=== PATIENT | male | born 1975 | race Caucasian/White ===

== ENCOUNTER 2019-05-25 15:41 | Inpatient (IN) | payer MEDICARE, MEDICAID ==
[~2019-05-25] VITALS: Ht 175.3 cm; Wt 93.0 kg
[~2019-05-25 15:41] MED LIST: GEOD1CAP PO; GEODON PO; LAMI25TA PO; LAMICTAL PO; RISP2TAB32 PO; SERO1TAB PO
[2019-05-25] MEDS ORDERED: CLON1TAB8 PO (15:56)
[2019-05-25] MEDS ORDERED: HALO10TA20 PO (15:56)
[2019-05-25] MEDS ORDERED: MAALOX 30 ML SUSP *UDC PO PRN (17:15)
[2019-05-25] MEDS ORDERED: ACETAMINOPHEN TAB 650MG DOSE (2X325MG) PO PRN (17:15)
[2019-05-25] MEDS ORDERED: MOM 30ML SUSPENSION UDC PO PRN (17:15)
[2019-05-25 18:01] VITALS: BP 113/65
[2019-05-25] MEDS: clonazePAM 1 MG TAB PO SCH (20:00)
[2019-05-25] MEDS: HALOPERIDOL 10 MG TAB PO SCH (20:00)
[2019-05-26 06:24] VITALS: BP 131/64
[2019-05-26] MEDS: clonazePAM 1 MG TAB PO SCH ×2 (08:22→21:00)
[2019-05-26] MEDS: HALOPERIDOL 10 MG TAB PO SCH ×2 (08:22→21:00)
--- NOTE | 2019-05-26 13:48 | HPEPDOC ---
General Date of Admission May 25, 2019 at 17:13 Date of Service: May 26, 2019 Chief Complaint The patient is a 44-year-old male admitted with a reason for visit of Schizoaffective Disorder. Source: Patient, Old records History of Present Illness 44 year old male with PMH of schizoaffective and bipolar disorder was admitted to [facility] for psychosis and i am seeing the patient here for medical history and physical. Patient tells me he has been having high WBCs for a while . He had some bad teeth so his PMD treated him with antibiotics this month and then rechecked his WBC which remained elevated so has referred him to a underwater photographer. He also complains that his groins are red and raw for which he was using fungal cream at home. He also complains of diarrhea one or two times a day which has worsened after the antibiotics. denied any abdominal pain. Home Medications Scheduled Clonazepam (Clonazepam) 1 Mg Tablet, 1 MG PO BID, (Reported) Haloperidol (Haloperidol) 10 Mg Tablet, 10 MG PO BID, (Reported) Allergies Coded Allergies: No Known Allergies (Unverified , 11/23/14) Past Medical History Medical History schizoaffective disorder, bipolar 1 disorder Leucocytosis Surgical History hernia surgery at age of 5 years cyst removal from back Family History Significant Family History: Cancer (mother breast cancer), Lung disease (father ) Social History * Smoker: current smoker Alcohol: sober (used to drink heavily before) Drugs: marijuana A-FIB/CHADSVASC A-FIB History Current/History of A-Fib/PAF?: No Review of Systems Constitutional: Denies: Chills, Fever, Night Sweats Eyes: Denies: Pain, Vision change ENT: Denies: Head Aches, Ear Pain, Dysphagia Skin: Reports: Rash (at both groins and right base of thumb), Breakdown (at the right groin); Denies: Lesions Pulmonary: Denies: Dyspnea, Cough Cardiovascular: Denies: Chest Pain, Palpitations, Orthopnea, Lt Headedness Gastrointestinal: Reports: Diarrhea; Denies: Nausea, Vomiting, Abdominal Pain Genitourinary: Denies: Dysuria, Frequency, Incontinence, Retention Hematologic: Denies: Bruising, Bleeding Excessively Musculoskeletal: Denies: Neck Pain, Back Pain, Joint Pain, Muscle Pain, Spasms Physical Examination General Exam: Positive: Alert, Cooperative, No Acute Distress Eye Exam: Positive: PERRLA, Conjunctiva & lids normal, EOMI; Negative: Sclera icteric ENT Exam: Positive: Atraumatic, Mucous membr. moist/pink, Pharynx Normal Neck Exam: Positive: Supple; Negative: JVD, thyromegaly Chest Exam: Positive: Clear to auscultation, Normal air movement Heart Exam: Positive: Rate Normal, Regular Rhythm, Normal S1, Normal S2; Negative: Murmurs, Rubs Abdomen Exam: Positive: Normal bowel sounds, Soft; Negative: Tenderness, Hepatospenomegaly Extremity Exam: Positive: Normal pulses; Negative: Clubbing, Cyanosis, Edema Skin Exam: Positive: Rash (Bilateral groin fungal infection more on the right) Neuro Exam: Positive: Normal Gait, Normal Speech, Strength at 5/5 X4 ext, Cranial Nerves 3-12 NL, Reflexes 2+ Vital Signs Vital Signs Date Time Temp Pulse Resp B/P (MAP) Pulse Ox O2 Delivery O2 Flow Rate FiO2 05/26/19 06:24 97.6 87 14 131/64 (86) 05/25/19 18:01 98 Assessment/Plan 44 year old male with PMH of schizoaffective and bipolar disorder was admitted to [facility] for psychosis and i am seeing the patient here for medical history and physical. Leucocytosis as per patient report will check WBC with differentia and peripheral smear. and basic metabolic panel Intertriginous candidiasis will give nystatin powder Rest of the management as per psychiatry Plan / VTE VTE Prophylaxis Ordered?: No (freely ambulatory) NATHALIA CARRENO MD May 26, 2019 12:06
[2019-05-26 14:02] LABS: BASO # 0.1 10^3/uL (0.0-0.2); BASO % 0.7 % (0.0-1.0); EOS # 0.4 10^3/uL (0.0-0.5); EOS % 4.5 % (0.0-3.0); HEMATOCRIT 42.7 % (42.0-52.0); LYMPH # 2.9 10^3/uL (1.5-5.0); MEAN CORPUSCULAR HGB CONC 32.8 g/dl (32.0-36.5); MEAN CORPUSCULAR VOLUME 91.6 fl (80.0-96.0); MONO # 0.6 10^3/uL (0.0-0.8); MONO % 6.6 % (0.0-5.0); NEUTROPHILS # 5.5 10^3/uL (1.5-8.5); NEUTROPHILS % 57.5 % (36.0-66.0); PLATELET COUNT, AUTOMATED 215 10^3/uL (150-450); RED BLOOD COUNT 4.66 10^6/uL (4.30-6.10); WHITE BLOOD COUNT 9.6 10^3/uL (4.0-10.0)
[2019-05-26 14:19] LABS: BLOOD UREA NITROGEN 17 MG/DL (7-18); CALCIUM LEVEL 9.2 MG/DL (8.5-10.1); CARBON DIOXIDE LEVEL 28 MEQ/L (21-32); CHLORIDE LEVEL 109 MEQ/L (98-107); CREATININE FOR GFR 0.78 MG/DL (0.70-1.30); GLOMERULAR FILTRATION RATE > 60.0 (>60); GLUCOSE, FASTING 108 MG/DL (70-100); POTASSIUM SERUM 4.3 MEQ/L (3.5-5.1); SODIUM LEVEL 142 MEQ/L (136-145)
[2019-05-26] MEDS: NYSTATIN 100,000 UNITS/GM TOPICAL PWD 15 GM TOP SCH ×2 (14:58→20:59)
[2019-05-26] MEDS: NICOTINE 14 MG/24 HR TRANSDERMAL TD SCH (15:01)
[2019-05-26 16:20] VITALS: BP 110/56
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
[2019-05-26] MEDS: traZODone 50 MG TAB PO PRN (21:00)
[2019-05-27 06:56] VITALS: BP 118/56
[2019-05-27] MEDS: NICOTINE 14 MG/24 HR TRANSDERMAL TD SCH ×2 (08:05→15:23)
[2019-05-27] MEDS: HALOPERIDOL 10 MG TAB PO SCH (08:06)
[2019-05-27] MEDS: clonazePAM 1 MG TAB PO SCH ×2 (08:06→20:18)
[2019-05-27] MEDS: NYSTATIN 100,000 UNITS/GM TOPICAL PWD 15 GM TOP SCH ×2 (08:06→21:00)
--- NOTE | 2019-05-27 10:27 | MHIPNPDOC ---
[facility] Progress Note Progress Note DATE OF SERVICE: 05/27/19 HISTORY: Per Dr. Byers admit note "This is a 44-year-old male who was referred by [facility] because they have no beds available. His main complaint is "I can't get these visions to stop." He says that he has these constant hallucinations where he sees crosses, some of them are upside down. He sees aliens, human beings and other things. As we were talking, he closed his eyes and he said that he could see these things. He says that it is always when he closes his eyes or when he is in the dark. He says that he has been having these for many years now, "ever since I found out that it was the end of days." The patient states that occasionally he may also have some auditory hallucinations but they are very rare. If he does hear it, they might say things like "come out of your shell and keep searching for the truth." He says of course that the hallucinations particularly interfere with his sleep. He stated in the emergency room that he was not suicidal, but sometimes he would "wish I was ." In [place]'s chart, he apparently told them that he would overdose if these hallucinations continue to happen, but the patient states that he did not remember saying that. He indicates that he was diagnosed with schizoaffective disorder and he [facility] in [place]. He is currently on Klonopin, Haldol, but he states that he wants to get placed on what he refers to as a "miracle drug" of Clozaril. He tells me that his main problem with the Clozaril is that he has had problems with his white count and as a result of that his clinic doctor has not wanted to try him on the Clozaril. The patient currently is on Haldol 10 mg twice a day and Klonopin 1 mg twice a day. He says that he was told that he needs to get off of the Klonopin, but he is too anxious, he says. He knows that he cannot get off of it right now. He says that he needs to get off of the Klonopin before they can treat him with Clozaril also. He tells me that he did not sleep last night but he did not take anything for sleep. I told him that we do have trazodone ordered on an as needed basis and he says that he will take it today because he says that in the past he has taken it and it has helped him. The patient uses cannabis on a daily basis but had stopped using it about three days ago. The patient says that in the past they thought that he was bipolar but then they changed it to schizoaffective disorder. He has been on multiple medications before, such as Seroquel, Risperdal and Abilify. He does not recall ever having been on Zyprexa before." VITAL SIGNS: See below. NEW TEST RESULTS: See below. CURRENT MEDICATIONS: See below. MENTAL STATUS EXAMINATION: He is alert and oriented times three. Eye contact is fair. Psychomotor activity is increased due to anxiety. He is paranoid that the conspiracy theories that he's ready online with actually happening with "the end of days". He is very concrete in his thinking with worrisome paranoid thought that the "end of days will happen" based on what he's read online (a lot of science fiction). He states that his mood is better. Affect is constricted, anxious but appropriate to mood. He is having visual hallucinations related to conspiracy theories that the pt is scared will actually happen and stop when he opens his eyes. He is denying suicidal or homicidal ideation. Concentration is fair. Memory is intact. Insight and judgment poor. DIAGNOSES: Psychosis, unspecified Generalized Anxiety Disorder Cannabis use disorder, severe. ASSESSMENT::Pt seen and states that his mood is better. States he slept well last night. Feels he is tolerating his medications and they're beneficial for his mood. He is concerned that they are not treating his hallucinations. He is attending groups and finding them helpful. He denies SI/HI, delusions. Pt feels safe here. "Category 4 & 5" hallucinations of green faces at night, demons, angels which are distracting to go to sleep. He states that category 4 is when his eyes are closed and category 5 is when his eyes are open. States he read this information online along with also reading about science fiction topics and conspiracy theories that he believes may happen and scared to with visual hallucinations based on what he's read on line and only when eyes closed, feels really anxious and tense at the same time. Has been concerned that he has been hearing a "voice of god/technology" sometimes although denies AH, but states that it has been weeks since his last one. He states that he reads a lot online from sites which claim to be alien communications, and those which claim that the apocalypse is coming soon which he believes and is very scared will happen. Advised to stop reading science fiction and about conspiracy theories talking about the end of the word to improve over all anxiety which pt agreed to. MANAGEMENT PLAN: continue plan. increase haldol for paranoia and anxiety trazodone 50mg qhs prn insomnia continue klonopin 1mg bid increase haldol 15mg bid TIME SPENT: 30 minutes. Vital Signs Vital Signs Date Time Temp Pulse Resp B/P (MAP) Pulse Ox O2 Delivery O2 Flow Rate FiO2 05/27/19 06:56 98.0 46 16 118/56 (76) 05/25/19 18:01 98 Laboratory Data [facility] Labs Laboratory Tests 2 05/26/19 13:47: Immature Granulocyte % (Auto) 0.7, Neutrophils (%) (Auto) 57.5, Lymphocytes (%) (Auto) 30.0, Monocytes (%) (Auto) 6.6H, Eosinophils (%) (Auto) 4.5H, Basophils (%) (Auto) 0.7, Neutrophils # (Auto) 5.5, Lymphocytes # (Auto) 2.9, Monocytes # (Auto) 0.6, Eosinophils # (Auto) 0.4, Basophils # (Auto) 0.1, Nucleated Red Blood Cells % (auto) 0.0, Differential Slide Review Report, Peripheral Blood Smear Path Consult PERIPHERAL SMEAR, Anion Gap 5L, Glomerular Filtration Rate > 60.0, Calcium Level 9.2 CBC/BMP Laboratory Tests 05/26/19 13:47 Current Medications Current Medications Medications (Trade) Dose Ordered Sig/Vivek Route PRN Reason Start Time Stop Time Status Last Admin Dose Admin Acetaminophen (Tylenol Tab) 650 mg Q6HP PRN PO HEADACHE or DISCOMFORT 05/25/19 17:15 Al Hydrox/Mg Hydrox/Simethicone (Mylanta) 30 ml Q4HP PRN PO HEARTBURN/INDIGESTION 05/25/19 17:15 Clonazepam (KlonoPIN) 1 mg BID PO 05/25/19 21:00 05/27/19 08:06 Haloperidol (Haldol) 10 mg BID PO 05/25/19 21:00 05/27/19 08:06 Home Med (Med Rec Complete!) ASDIRECTED XX 05/25/19 17:45 05/25/19 17:38 DC Magnesium Hydroxide (Milk Of Magnesia) 30 ml DAILYPRN PRN PO CONSTIPATION 05/25/19 17:15 Nicotine (Nicoderm Cq 14mg) 1 patch DAILY TD 05/26/19 09:00 05/26/19 15:01 Nystatin (Mycostatin Powder, Nystop) both groins BID TOP 05/26/19 09:00 05/27/19 08:06 Trazodone HCl (Desyrel) 50 mg QHSP PRN PO INSOMNIA 05/25/19 17:15 05/26/19 21:00 Allergies Coded Allergies: No Known Allergies (Unverified , 11/23/14) RUTHIE LERAM DO May 27, 2019 10:27 am
[2019-05-27 16:00] VITALS: BP 108/58
[2019-05-27] MEDS: HALOPERIDOL 5 MG TAB PO SCH (20:19)
[2019-05-27] MEDS: traZODone 50 MG TAB PO PRN (20:19)
[2019-05-27] MEDS ORDERED: diphenhydrAMINE 50 MG CAP PO ONE (23:45)
[2019-05-28 06:36] VITALS: BP 124/88
[2019-05-28] MEDS: NICOTINE 14 MG/24 HR TRANSDERMAL TD SCH (08:36)
[2019-05-28] MEDS: clonazePAM 1 MG TAB PO SCH ×2 (08:37→20:02)
[2019-05-28] MEDS: NYSTATIN 100,000 UNITS/GM TOPICAL PWD 15 GM TOP SCH ×2 (08:37→20:02)
[2019-05-28] MEDS: HALOPERIDOL 5 MG TAB PO SCH ×2 (08:37→20:02)
--- NOTE | 2019-05-28 09:55 | MHIPNPDOC ---
[facility] Progress Note Progress Note DATE OF SERVICE: 05/28/19 HISTORY: Per Dr. Byers admit note "This is a 44-year-old male who was referred by [facility] because they have no beds available. His main complaint is "I can't get these visions to stop." He says that he has these constant hallucinations where he sees crosses, some of them are upside down. He sees aliens, human beings and other things. As we were talking, he closed his eyes and he said that he could see these things. He says that it is always when he closes his eyes or when he is in the dark. He says that he has been having these for many years now, "ever since I found out that it was the end of days." The patient states that occasionally he may also have some auditory hallucinations but they are very rare. If he does hear it, they might say things like "come out of your shell and keep searching for the truth." He says of course that the hallucinations particularly interfere with his sleep. He stated in the emergency room that he was not suicidal, but sometimes he would "wish I was ." In [place]'s chart, he apparently told them that he would overdose if these hallucinations continue to happen, but the patient states that he did not remember saying that. He indicates that he was diagnosed with schizoaffective disorder and he [facility] in [place]. He is currently on Klonopin, Haldol, but he states that he wants to get placed on what he refers to as a "miracle drug" of Clozaril. He tells me that his main problem with the Clozaril is that he has had problems with his white count and as a result of t hat his clinic doctor has not wanted to try him on the Clozaril. The patient currently is on Haldol 10 mg twice a day and Klonopin 1 mg twice a day. He says that he was told that he needs to get off of the Klonopin, but he is too anxious, he says. He knows that he cannot get off of it right now. He says that he needs to get off of the Klonopin before they can treat him with Clozaril also. He tells me that he did not sleep last night but he did not take anything for sleep. I told him that we do have trazodone ordered on an as needed basis and he says that he will take it today because he says that in the past he has taken it and it has helped him. The patient uses cannabis on a daily basis but had stopped using it about three days ago. The patient says that in the past they thought that he was bipolar but then they changed it to schizoaffective disorder. He has been on multiple medications before, such as Seroquel, Risperdal and Abilify. He does not recall ever having been on Zyprexa before." VITAL SIGNS: See below. NEW TEST RESULTS: See below. CURRENT MEDICATIONS: See below. MENTAL STATUS EXAMINATION: He is alert and oriented times three. Eye contact is fair. Psychomotor activity is increased due to anxiety. He is paranoid that the conspiracy theories that he's ready online with actually happening with "the end of days". He is very concrete in his thinking with worrisome paranoid thought that the "end of days will happen" based on what he's read online (a lot of science fiction). He states that his mood is better. Affect is constricted, anxious but appropriate to mood. He is having visual hallucinations related to conspiracy theories that the pt is scared will actually happen and stop when he opens his eyes. He is denying suicidal or homicidal ideation. Concentration is fair. Memory is intact. Insight and judgment poor. DIAGNOSES: Psychosis, unspecified Generalized Anxiety Disorder Cannabis use disorder, severe. ASSESSMENT::Pt seen and states that his mood is better but states he didn't sleep very well last night, only a few hours. Agreeable to increase in trazodone to improve sleep. States "racing thoughts and VH when eyes closed". Can't states exactly what he was thinking or hallucinating about. States he feels he'd do better at home b/c "it's too stressful here" but can't exactly state what is making him feel stressed here. Continues to have anxiety relating to the fears of the end of days that he has read online previous and seems to perseverate on it. States he's taken depakote in the past when he was depressed and is agreeable to taking it night for aid in mood and anxiety. Feels he is tolerating his medications (increase in haldol) and they're beneficial for his mood. He is concerned that they are not treating his hallucinations. He is at tending groups and finding them helpful. He denies SI/HI, delusions. Pt feels safe here. Per yesterday's note ""Category 4 & 5" hallucinations of green faces at night, demons, angels which are distracting to go to sleep. He states that category 4 is when his eyes are closed and category 5 is when his eyes are open. States he read this information online along with also reading about science fiction topics and conspiracy theories that he believes may happen and scared to with visual hallucinations based on what he's read on line and only when eyes closed, feels really anxious and tense at the same time. Has been concerned that he has been hearing a "voice of god/technology" sometimes although denies AH, but states that it has been weeks since his last one. He states that he reads a lot online from sites which claim to be alien communications, and those which claim that the apocalypse is coming soon which he believes and is very scared will happen. Advised to stop reading science fiction and about conspiracy theories talking about the end of the word to improve over all anxiety which pt agreed to." MANAGEMENT PLAN: continue plan. Increase trazodone prn insomnia. Start depakote 250mg qhs for mood and anxiety. trazodone 100mg qhs prn insomnia continue klonopin 1mg bid increase haldol 15mg bid depakote 250mg qhs TIME SPENT: 30 minutes. Vital Signs Vital Signs Date Time Temp Pulse Resp B/P (MAP) Pulse Ox O2 Delivery O2 Flow Rate FiO2 05/28/19 06:36 98.3 92 12 124/88 (100) Room Air 05/25/19 18:01 98 Current Medications Current Medications Medications (Trade) Dose Ordered Sig/Vivek Route PRN Reason Start Time Stop Time Status Last Admin Dose Admin Acetaminophen (Tylenol Tab) 650 mg Q6HP PRN PO HEADACHE or DISCOMFORT 05/25/19 17:15 Al Hydrox/Mg Hydrox/Simethicone (Mylanta) 30 ml Q4HP PRN PO HEARTBURN/INDIGESTION 05/25/19 17:15 Clonazepam (KlonoPIN) 1 mg BID PO 05/25/19 21:00 05/28/19 08:37 Haloperidol (Haldol) 10 mg BID PO 05/25/19 21:00 05/27/19 10:27 DC 05/27/19 08:06 Haloperidol (Haldol) 15 mg BID PO 05/27/19 21:00 05/28/19 08:37 Home Med (Med Rec Complete!) ASDIRECTED XX 05/25/19 17:45 05/25/19 17:38 DC Magnesium Hydroxide (Milk Of Magnesia) 30 ml DAILYPRN PRN PO CONSTIPATION 05/25/19 17:15 Nicotine (Nicoderm Cq 14mg) 1 patch DAILY TD 05/26/19 09:00 05/28/19 08:36 Nystatin (Mycostatin Powder, Nystop) both groins BID TOP 05/26/19 09:00 05/28/19 08:37 Trazodone HCl (Desyrel) 50 mg QHSP PRN PO INSOMNIA 05/25/19 17:15 05/27/19 20:19 Allergies Coded Allergies: No Known Allergies (Unverified , 11/23/14) RUTHIE LERMA DO May 28, 2019 9:55 am
[2019-05-28 11:24] LABS: ALBUMIN 3.7 GM/DL (3.2-5.2); ALT/SGPT 21 U/L (12-78); BILIRUBIN,TOTAL 0.3 MG/DL (0.2-1.0); BLOOD UREA NITROGEN 14 MG/DL (7-18); CALCIUM LEVEL 9.2 MG/DL (8.5-10.1); CARBON DIOXIDE LEVEL 30 MEQ/L (21-32); CHLORIDE LEVEL 107 MEQ/L (98-107); CREATININE FOR GFR 0.81 MG/DL (0.70-1.30); GLOMERULAR FILTRATION RATE > 60.0 (>60); GLUCOSE, FASTING 76 MG/DL (70-100); POTASSIUM SERUM 4.5 MEQ/L (3.5-5.1); SODIUM LEVEL 141 MEQ/L (136-145)
[2019-05-28 16:10] VITALS: BP 136/59
[2019-05-28] MEDS: DIVALPROEX 250 MG TAB PO SCH (20:01)
[2019-05-28] MEDS: traZODone 100 MG TAB PO PRN (20:03)
[2019-05-29 06:35] VITALS: BP 98/52
[2019-05-29] MEDS: NICOTINE 14 MG/24 HR TRANSDERMAL TD SCH (08:17)
[2019-05-29] MEDS: clonazePAM 1 MG TAB PO SCH ×2 (08:17→20:24)
[2019-05-29] MEDS: HALOPERIDOL 5 MG TAB PO SCH ×2 (08:17→20:25)
[2019-05-29] MEDS: NYSTATIN 100,000 UNITS/GM TOPICAL PWD 15 GM TOP SCH ×2 (08:17→20:26)
--- NOTE | 2019-05-29 09:37 | MHIPNPDOC ---
[facility] Progress Note Progress Note DATE OF SERVICE: 05/29/19 HISTORY: Per Dr. Byers admit note "This is a 44-year-old male who was referred by [facility] because they have no beds available. His main complaint is "I can't get these visions to stop." He says that he has these constant hallucinations where he sees crosses, some of them are upside down. He sees aliens, human beings and other things. As we were talking, he closed his eyes and he said that he could see these things. He says that it is always when he closes his eyes or when he is in the dark. He says that he has been having these for many years now, "ever since I found out that it was the end of days." The patient states that occasionally he may also have some auditory hallucinations but they are very rare. If he does hear it, they might say things like "come out of your shell and keep searching for the truth." He says of course that the hallucinations particularly interfere with his sleep. He stated in the emergency room that he was not suicidal, but sometimes he would "wish I was ." In [place]'s chart, he apparently told them that he would overdose if these hallucinations continue to happen, but the patient states that he did not remember saying that. He indicates that he was diagnosed with schizoaffective disorder and [facility] [place]. He is currently on Klonopin, Haldol, but he states that he wants to get placed on what he refers to as a "miracle drug" of Clozaril. He tells me that his main problem with the Clozaril is that he has had problems with his white count and as a result of that his clinic doctor has not wanted to try him on the Clozaril. The patient currently is on Haldol 10 mg twice a day and Klonopin 1 mg twice a day. He says that he was told that he needs to get off of the Klonopin, but he is too anxious, he says. He knows that he cannot get off of it right now. He says that he needs to get off of the Klonopin before they can treat him with Clozaril also. He tells me that he did not sleep last night but he did not take anything for sleep. I told him that we do have trazodone ordered on an as needed basis and he says that he will take it today because he says that in the past he has taken it and it has helped him. The patient uses cannabis on a daily basis but had stopped using it about three days ago. The patient says that in the past they thought that he was bipolar but then they changed it to schizoaffective disorder. He has been on multiple medications before, such as Seroquel, Risperdal and Abilify. He does not recall ever having been on Zyprexa before." VITAL SIGNS: See below. NEW TEST RESULTS: See below. CURRENT MEDICATIONS: See below. MENTAL STATUS EXAMINATION: He is alert and oriented times three. Eye contact is fair. Psychomotor activity is increased due to anxiety. He is paranoid that the conspiracy theories that he's ready online with actually happening with "the end of days". He is very concrete in his thinking with worrisome paranoid thought that the "end of days will happen" based on what he's read online (a lot of science fiction). He states that his mood is better. Affect is constricted, anxious but appropriate to mood. He is having visual hallucinations related to conspiracy theories that the pt is scared will actually happen and stop when he opens his eyes. He is denying suicidal or homicidal ideation. Concentration is fair. Memory is intact. Insight and judgment poor. DIAGNOSES: Psychosis, unspecified Generalized Anxiety Disorder Cannabis use disorder, severe. ASSESSMENT::Pt seen and states that his mood is overall "better... more relaxed" with the start of depakote qhs. States his racing thoughts and VH when eyes closed are improved with depakote and reduction of anxiety. Asked pt about himself and states he's a "loner" and has "a couple friends... brother and sister," admits people make him uncomfortable. He may possibly be of Schizoid Personality D/O and he appears to endorse properties of it. Feels he is tolerating his medications and they're beneficial for his mood and anxiety, anxiety related VH when he closes his eyes (greatly improved). He not attending groups as states he doesn't feel the need huyen. He denies SI/HI, delusions. Pt feels safe here. Advised when first admitted to stop reading science fiction and about conspiracy theories talking about the end of the word to improve over all anxiety which pt agreed to. MANAGEMENT PLAN: continue plan. Increase trazodone prn insomnia. trazodone 100mg qhs prn insomnia continue klonopin 1mg bid increase haldol 15mg bid depakote 250mg qhs TIME SPENT: 30 minutes. Vital Signs Vital Signs Date Time Temp Pulse Resp B/P (MAP) Pulse Ox O2 Delivery O2 Flow Rate FiO2 05/29/19 08:00 Room Air 05/29/19 06:35 98.9 72 18 98/52 (67) 05/25/19 18:01 98 Laboratory Data 24H Labs Laboratory Tests 2 05/28/19 10:23: Anion Gap 4L, Glomerular Filtration Rate > 60.0, Calcium Level 9.2, Total Bilirubin 0.3, Aspartate Amino Transf (AST/SGOT) 17, Alanine Aminotransferase (ALT/SGPT) 21, Alkaline Phosphatase 153H, Total Protein 7.0, Albumin 3.7, Albumin/Globulin Ratio 1.12 CBC/BMP Laboratory Tests 05/28/19 10:23 Current Medications Current Medications Medications (Trade) Dose Ordered Sig/Vivek Route PRN Reason Start Time Stop Time Status Last Admin Dose Admin Acetaminophen (Tylenol Tab) 650 mg Q6HP PRN PO HEADACHE or DISCOMFORT 05/25/19 17:15 Al Hydrox/Mg Hydrox/Simethicone (Mylanta) 30 ml Q4HP PRN PO HEARTBURN/INDIGESTION 05/25/19 17:15 Clonazepam (KlonoPIN) 1 mg BID PO 05/25/19 21:00 05/29/19 08:17 Divalproex Sodium (Depakote) 250 mg QHS PO 05/28/19 21:00 05/28/19 20:01 Haloperidol (Haldol) 10 mg BID PO 05/25/19 21:00 05/27/19 10:27 DC 05/27/19 08:06 Haloperidol (Haldol) 15 mg BID PO 05/27/19 21:00 05/29/19 08:17 Home Med (Med Rec Complete!) ASDIRECTED XX 05/25/19 17:45 05/25/19 17:38 DC Magnesium Hydroxide (Milk Of Magnesia) 30 ml DAILYPRN PRN PO CONSTIPATION 05/25/19 17:15 Nicotine (Nicoderm Cq 14mg) 1 patch DAILY TD 05/26/19 09:00 05/29/19 08:17 Nystatin (Mycostatin Powder, Nystop) both groins BID TOP 05/26/19 09:00 05/29/19 08:17 Trazodone HCl (Desyrel) 50 mg QHSP PRN PO INSOMNIA 05/25/19 17:15 05/28/19 14:24 DC 05/27/19 20:19 Trazodone HCl (Desyrel) 100 mg QHSP PRN PO INSOMNIA 05/28/19 14:30 05/28/19 20:03 Allergies Coded Allergies: No Known Allergies (Unverified , 11/23/14) RUTHIE LERMA DO May 29, 2019 9:22 am
[2019-05-29 16:54] VITALS: BP 104/58
[2019-05-29] MEDS: DIVALPROEX 250 MG TAB PO SCH (20:24)
[2019-05-29] MEDS: traZODone 100 MG TAB PO PRN (21:15)
[2019-05-30 06:20] VITALS: BP 101/62
[2019-05-30] MEDS: NICOTINE 14 MG/24 HR TRANSDERMAL TD SCH (08:13)
[2019-05-30] MEDS: clonazePAM 1 MG TAB PO SCH ×2 (08:13→20:05)
[2019-05-30] MEDS: HALOPERIDOL 5 MG TAB PO SCH ×2 (08:14→20:05)
--- NOTE | 2019-05-30 09:31 | MHIPNPDOC ---
[facility] Progress Note Progress Note DATE OF SERVICE: 05/30/19 HISTORY: Per Dr. Byers admit note "This is a 44-year-old male who was referred by [facility] because they have no beds available. His main complaint is "I can't get these visions to stop." He says that he has these constant hallucinations where he sees crosses, some of them are upside down. He sees aliens, human beings and other things. As we were talking, he closed his eyes and he said that he could see these things. He says that it is always when he closes his eyes or when he is in the dark. He says that he has been having these for many years now, "ever since I found out that it was the end of days." The patient states that occasionally he may also have some auditory hallucinations but they are very rare. If he does hear it, they might say things like "come out of your shell and keep searching for the truth." He says of course that the hallucinations particularly interfere with his sleep. He stated in the emergency room that he was not suicidal, but sometimes he would "wish I was ." In [place]'s chart, he apparently told them that he would overdose if these hallucinations continue to happen, but the patient states that he did not remember saying that. He indicates that he was diagnosed with schizoaffective disorder and he [facility] [place]. He is currently on Klonopin, Haldol, but he states that he wants to get placed on what he refers to as a "miracle drug" of Clozaril. He tells me that his main problem with the Clozaril is that he has had problems with his white count and as a result of t hat his clinic doctor has not wanted to try him on the Clozaril. The patient currently is on Haldol 10 mg twice a day and Klonopin 1 mg twice a day. He says that he was told that he needs to get off of the Klonopin, but he is too anxious, he says. He knows that he cannot get off of it right now. He says that he needs to get off of the Klonopin before they can treat him with Clozaril also. He tells me that he did not sleep last night but he did not take anything for sleep. I told him that we do have trazodone ordered on an as needed basis and he says that he will take it today because he says that in the past he has taken it and it has helped him. The patient uses cannabis on a daily basis but had stopped using it about three days ago. The patient says that in the past they thought that he was bipolar but then they changed it to schizoaffective disorder. He has been on multiple medications before, such as Seroquel, Risperdal and Abilify. He does not recall ever having been on Zyprexa before." VITAL SIGNS: See below. NEW TEST RESULTS: See below. CURRENT MEDICATIONS: See below. MENTAL STATUS EXAMINATION: He is alert and oriented times three. Eye contact is fair. Psychomotor activity is within normal limits and appears more calm overall. He is denies paranoid that the conspiracy theories that he's read online with actually happening with "the end of days". He is concrete, but linear in thoughts and more logical. He states that his mood is better. Affect is more full range, euthymic, and appropriate to mood. He is denies having visual hallucinations related to conspiracy theories that the pt is scared will actually happen and stop when he opens his eyes. He is denying suicidal or homicidal ideation. Concentration is good. Memory is intact. Insight and judgment are fair. DIAGNOSES: Psychosis, unspecified Generalized Anxiety Disorder Cannabis use disorder, severe. R/O schizoid personality d/o ASSESSMENT::Pt seen and states that his mood is overall "more level" with the start of depakote qhs. States his racing thoughts and VH when eyes closed are greatly improved to virtually none with depakote and reduction of anxiety. Asked pt yesterday about himself and states he's a "loner" and has "a couple friends... brother and sister," admits people make him uncomfortable. He may possibly be of Schizoid Personality D/O and he appears to endorse properties of it. Feels he is tolerating his medications and they're beneficial for his mood and anxiety, anxiety related VH when he closes his eyes (greatly improved) and likes them. He is not attending groups as states he doesn't feel the need to and admits people make him feel uncomfortable and again prefers to be alone. He denies SI/HI, hallucination, delusions. Pt feels safe here. Advised when first admitted to stop reading science fiction and about conspiracy theories talking about the end of the word to improve over all anxiety which pt agreed to. MANAGEMENT PLAN: continue plan. trazodone 100mg qhs prn insomnia klonopin 1mg bid haldol 15mg bid depakote 250mg qhs TIME SPENT: 30 minutes. Vital Signs Vital Signs Date Time Temp Pulse Resp B/P (MAP) Pulse Ox O2 Delivery O2 Flow Rate FiO2 05/30/19 07:55 Room Air 05/30/19 06:20 97.3 88 16 101/62 (75) 05/25/19 18:01 98 Current Medications Current Medications Medications (Trade) Dose Ordered Sig/Vivek Route PRN Reason Start Time Stop Time Status Last Admin Dose Admin Acetaminophen (Tylenol Tab) 650 mg Q6HP PRN PO HEADACHE or DISCOMFORT 05/25/19 17:15 Al Hydrox/Mg Hydrox/Simethicone (Mylanta) 30 ml Q4HP PRN PO HEARTBURN/INDIGESTION 05/25/19 17:15 Clonazepam (KlonoPIN) 1 mg BID PO 05/25/19 21:00 05/30/19 08:13 Divalproex Sodium (Depakote) 250 mg QHS PO 05/28/19 21:00 05/29/19 20:24 Haloperidol (Haldol) 10 mg BID PO 05/25/19 21:00 05/27/19 10:27 DC 05/27/19 08:06 Haloperidol (Haldol) 15 mg BID PO 05/27/19 21:00 05/30/19 08:14 Home Med (Med Rec Complete!) ASDIRECTED XX 05/25/19 17:45 05/25/19 17:38 DC Magnesium Hydroxide (Milk Of Magnesia) 30 ml DAILYPRN PRN PO CONSTIPATION 05/25/19 17:15 Nicotine (Nicoderm Cq 14mg) 1 patch DAILY TD 05/26/19 09:00 05/30/19 08:13 Nystatin (Mycostatin Powder, Nystop) both groins BID TOP 05/26/19 09:00 05/29/19 20:26 Trazodone HCl (Desyrel) 50 mg QHSP PRN PO INSOMNIA 05/25/19 17:15 05/28/19 14:24 DC 05/27/19 20:19 Trazodone HCl (Desyrel) 100 mg QHSP PRN PO INSOMNIA 05/28/19 14:30 05/29/19 21:15 Allergies Coded Allergies: No Known Allergies (Unverified , 11/23/14) RUTHIE LERMA DO May 30, 2019 9:31 am
[2019-05-30] MEDS: NYSTATIN 100,000 UNITS/GM TOPICAL PWD 15 GM TOP SCH ×2 (10:38→20:04)
[2019-05-30 18:00] VITALS: BP 120/61
[2019-05-30] MEDS: DIVALPROEX 250 MG TAB PO SCH (20:06)
[2019-05-30] MEDS: traZODone 100 MG TAB PO PRN (20:10)
[2019-05-31 07:01] VITALS: BP 112/63
[2019-05-31] MEDS: NICOTINE 14 MG/24 HR TRANSDERMAL TD SCH (08:23)
[2019-05-31] MEDS: clonazePAM 1 MG TAB PO SCH (08:23)
[2019-05-31] MEDS: HALOPERIDOL 5 MG TAB PO SCH (08:23)
[2019-05-31] MEDS: NYSTATIN 100,000 UNITS/GM TOPICAL PWD 15 GM TOP SCH (08:23)
[2019-05-31] MEDS ORDERED: TRAZ10TA PO (09:16)
[2019-05-31] MEDS ORDERED: HALO5TA PO (09:16)
[2019-05-31] MEDS ORDERED: DEPA250T32 PO (09:16)
--- NOTE | 2019-05-31 09:16 | MHDSPDOC ---
[facility] Discharge Summary Discharge Summary DATE OF ADMISSION: May 25, 2019 at 5:13 pm DATE OF DISCHARGE: May 31, 2019 DISCHARGE DIAGNOSES: Psychosis, unspecified Generalized Anxiety Disorder Cannabis use disorder, severe. R/O schizoid personality d/o REASON FOR ADMISSION: Per Dr. Byers admit note "This is a 44-year-old male who was referred by [facility] because they have no beds available. His main complaint is "I can't get these visions to stop." He says that he has these constant hallucinations where he sees crosses, some of them are upside down. He sees aliens, human beings and other things. As we were talking, he closed his eyes and he said that he could see these things. He says that it is always when he closes his eyes or when he is in the dark. He says that he has been having these for many years now, "ever since I found out that it was the end of days." The patient states that occasionally he may also have some auditory hallucinations but they are very rare. If he does hear it, they might say things like "come out of your shell and keep searching for the truth." He says of course that the hallucinations particularly interfere with his sleep. He stated in the emergency room that he was not suicidal, but sometimes he would "wish I was ." In [place]'s chart, he apparently told them that he would overdose if these hallucinations continue to happen, but the patient states that he did not remember saying that. He indicates that he was diagnosed with schizoaffective disorder and he [facility] [place]. He is currently on Klonopin, Haldol, but he states that he wants to get placed on what he refers to as a "miracle drug" of Clozaril. He tells me that his main problem with the Clozaril is that he has had problems with his white count and as a result of that his clinic doctor has not wanted to try him on the Clozaril. The patient currently is on Haldol 10 mg twice a day and Klonopin 1 mg twice a day. He says that he was told that he needs to get off of the Klonopin, but he is too anxious, he says. He knows that he cannot get off of it right now. He says that he needs to get off of the Klonopin before they can treat him with Clozaril also. He tells me that he did not sleep last night but he did not take anything for sleep. I told him that we do have trazodone ordered on an as needed basis and he says that he will take it today because he says that in the past he has taken it and it has helped him. The patient uses cannabis on a daily basis but had stopped using it about three days ago. The patient says that in the past they thought that he was bipolar but then they changed it to schizoaffective disorder. He has been on multiple medications before, such as Seroquel, Risperdal and Abilify. He does not recall ever having been on Zyprexa before." CONSULTANTS INVOLVED: none TREATMENT AND PROGRESS ON THE UNIT : Pt was admitted to [facility], seen for psychiatric assessment and restarted on his outpatient medication haldol increased to 15mg bid for VH. He was started on depakote 250mg qhs for mood stabilization and anxiety. He was provided trazodone 50mg qhs prn insomnia. Pt found his medications beneficial and tolerated them well. He attended groups daily during his stay. His symptoms improved with treatment. On day of discharge he denied depression, anxiety, insomnia, SI/HI, hallucinations, delusions. He was discharged home follow-up at [facility].. He felt safe for discharge. DISCHARGE ASSESSMENT: Pt seen and states that his mood is overall "good... more calm" and he's really looking forward to going home today. States his racing thoughts and VH when eyes closed with the start of with depakote and reduction of anxiety. Feels he is tolerating his medications and they're beneficial for his mood and anxiety, anxiety related VH when he closes his eyes (greatly improved) and likes them. He did not attend groups as states he doesn't feel the need to and admitted people make him feel uncomfortable and prefers to be alone. He denies depression, anxiety, insomnia, SI/HI, hallucination, delusions. Pt feels safe to be discharge home. MENTAL STATUS EXAMINATION ON DISCHARGE: He is alert and oriented times three. Eye contact is good. Psychomotor activity is within normal limits and appears calm overall. He is denies paranoia that the conspiracy theories that he's read online with actually happening with "the end of days". He is concrete, but linear in thoughts and logical. He states that his mood is better. Affect is more full range, euthymic, and appropriate to mood. He denies having visual hallucinations related to conspiracy theories that the pt is scared will actually happen and stop when he opens his eyes. He is denying suicidal or homicidal ideation. Concentration is good. Memory is intact. Insight and judgment are fair-good. MEDICATIONS ON DISCHARGE: trazodone 100mg qhs prn insomnia klonopin 1mg bid haldol 15mg bid depakote 250mg qhs PLAN/FOLLOWUP ARRANGEMENTS: D/c home with follow-up at [facility]. The amount of time spent in the coordination of care for this patient was approximately 30 minutes. Vital Signs/I&Os Vital Signs Date Time Temp Pulse Resp B/P (MAP) Pulse Ox O2 Delivery O2 Flow Rate FiO2 05/31/19 07:01 96.6 72 14 112/63 (79) 05/30/19 07:55 Room Air 05/25/19 18:01 98 Medications Scheduled Clonazepam (Clonazepam) 1 Mg Tablet, 1 MG PO BID, (Reported) Haloperidol (Haloperidol) 10 Mg Tablet, 10 MG PO BID, (Reported) Allergies Coded Allergies: No Known Allergies (Unverified , 11/23/14) RUTHIE LERMA DO May 31, 2019 9:16 am
== END 2019-05-31 15:00 | disposition home or self-care (01) | DRG 885 ==
LOC: M ED 15:41 → M ED INP 17:13 → M PSY 17:35
PROVIDERS: ADMIT Psychiatry & Neurology Psychiatry; ATTEND Psychiatry & Neurology Psychiatry
DX: F29 Unspecified psychosis not due to a substance or known physiological condition (principal); F41.1 Generalized anxiety disorder; F12.90 Cannabis use, unspecified, uncomplicated; F60.1 Schizoid personality disorder; Z79.899 Other long term (current) drug therapy; F17.200 Nicotine dependence, unspecified, uncomplicated; D72.829 Elevated white blood cell count, unspecified; B37.2 Candidiasis of skin and nail